=== PATIENT | male | born 1990 | race Caucasian/White ===

== ENCOUNTER → 2016-10-09 | Outpatient (CLI) | payer MEDICAID ==
[~2016-10-09] MED LIST: AMOXICILLIN 50500 MG PO; CEPHALEXIN500 M1 PO; FLEXERIL10 MG PO; LEXAPRO20 MG PO; MOTRIN800 MG PO; NO HOME MEDICATIONS; NORCO 325 MG-51 TAB PO; ULTRAM 50MG TAB50 MG PO; VICODIN 5/5001 UDTAB PO; XANAX0.5 MG PO; ZOFRAN ODT4 MG PO; ZOLOFT 100MG100 MG PO
== END ==
LOC: COL.RAD 11:57
DX: S09.8XXA Other specified injuries of head, initial encounter (principal); W19.XXXA Unspecified fall, initial encounter; Y99.0 Civilian activity done for income or pay; R41.3 Other amnesia; R11.10 Vomiting, unspecified

== ENCOUNTER 2016-10-11 22:24 | Emergency (ER) | payer OTHER, MEDICAID ==
[~2016-10-11] VITALS: Ht 172.7 cm; Wt 65.9 kg
[~2016-10-11 22:24] MED LIST changes: -ULTRAM 50MG TAB50 MG PO; -ZOFRAN ODT4 MG PO; -ZOLOFT 100MG100 MG PO
[2016-10-11 22:28] VITALS: TEMP 97.8
[2016-10-11] MEDS ORDERED: ZOLOFT 100MG100 MG PO (22:28)
[2016-10-12 00:34] VITALS: BP 111/68; PULSE 68
== END 2016-10-12 00:34 | disposition home or self-care (01) ==
LOC: COL.ER 22:24
DX: S06.0X0A Concussion without loss of consciousness, initial encounter (principal); V57.0XXA Driver of pick-up truck or van injured in collision with fixed or stationary object in nontraffic accident, initial encounter

== ENCOUNTER → 2016-10-27 | Outpatient (CLI) | payer OTHER ==
[~2016-10-27] MED LIST changes: +ULTRAM 50MG TAB50 MG PO; +ZOFRAN ODT4 MG PO; +ZOLOFT 100MG100 MG PO
== END ==
LOC: COL.RAD 14:00
DX: S09.8XXD Other specified injuries of head, subsequent encounter (principal); R41.3 Other amnesia; X58.XXXD Exposure to other specified factors, subsequent encounter; Y99.0 Civilian activity done for income or pay

== ENCOUNTER 2016-11-21 09:24 | Emergency (ER) | payer SELFPAY ==
[~2016-11-21] VITALS: Ht 20.3 cm; Wt 68.2 kg
[~2016-11-21 09:24] MED LIST changes: -ULTRAM 50MG TAB50 MG PO; -ZOFRAN ODT4 MG PO
[2016-11-21 09:26] VITALS: BP 103/62; PULSE 84; TEMP 98
[2016-11-21 09:58] LABS: BASO % 0.8 % (0.0-2.0); EOS # 0.1 (0.0-0.7); EOS % 1.9 % (0-4.0); GRAN # 2.8 (1.4-6.5); GRAN % 53.2 % (42.2-75.2); HEMATOCRIT 44.1 % (42.0-52.0); HEMOGLOBIN 15.7 g/dl (13.5-18.0); LYMPH % 37.6 % (20.0-51.0); MEAN CELL VOLUME 88 fl (80.0-100.0); MEAN CORPUSCULAR HEMOGLOBIN 31 pg (27.0-31.0); MEAN CORPUSCULAR HGB CONC 36 g/dl (33.0-37.0); MEAN PLATELET VOLUME 9.4 fl (7.4-10.4); MONO # 0.3 (0.1-0.6); MONO % 6.1 % (1.7-9.3); PLATELET COUNT 223 K/mm3 (130-400); RED BLOOD COUNT 5.04 M/mm3 (4.20-5.60); REDCELL DISTRIBUTION WIDTH-CV 12.6 % (11.5-14.5); WHITE BLOOD COUNT 5.3 K/mm3 (4.8-10.8)
[2016-11-21 10:06] LABS: ALBUMIN 4.3 gm/dL (3.5-5.0); BILIRUBIN,TOTAL 0.7 mg/dL (0.0-1.0); CALCIUM 9.2 mg/dL (8.4-10.2); CREATININE, serum 0.94 mg/dL (0.66-1.25); POTASSIUM 4.2 mmol/L (3.4-5.0); TOTAL PROTEIN 7.6 gm/dL (6.4-8.2)
[2016-11-21 10:19] LABS: INFLUENZA B NEGATIVE
[2016-11-21] MEDS ORDERED: ZOFRAN ODT4 MG PO (11:02)
[2016-11-21 11:03] LABS: PH 5 (5-8); SQUAMOUS EPITHELIAL None Seen /hpf; URINE APPEARANCE Hazy; URINE BACTERIA None Seen /hpf; URINE BILIRUBIN Negative (NEGATIVE); URINE BLOOD Negative (NEGATIVE); URINE COLOR Yellow; URINE GLUCOSE Negative (NEGATIVE); URINE KETONE Negative (NEGATIVE); URINE RBC 0-2 /hpf; URINE WBC 0-2 /hpf
== END 2016-11-21 11:14 | disposition home or self-care (01) ==
LOC: COL.ER 09:24
PROVIDERS: Family Medicine
DX: K52.9 Noninfective gastroenteritis and colitis, unspecified (principal)
CPT/HCPCS: J1885; J2405; J7030

== ENCOUNTER 2016-12-04 10:23 | Emergency (ER) | payer SELFPAY ==
[~2016-12-04] VITALS: Ht 175.3 cm; Wt 68.2 kg
[~2016-12-04 10:23] MED LIST changes: +ZOFRAN ODT4 MG PO
[2016-12-04 10:27] VITALS: BP 113/79; PULSE 76; TEMP 97.7
[2016-12-04] MEDS ORDERED: ULTRAM 50MG TAB50 MG PO (11:04)
[2016-12-04] MEDS ORDERED: AMOXICILLIN 50500 MG PO (11:04)
== END 2016-12-04 11:11 | disposition home or self-care (01) ==
LOC: COL.ER 10:23
DX: K08.89 Other specified disorders of teeth and supporting structures (principal); F17.210 Nicotine dependence, cigarettes, uncomplicated

== ENCOUNTER 2017-03-04 12:22 | Emergency (ER) | payer SELFPAY ==
[~2017-03-04] VITALS: Ht 175.3 cm; Wt 61.4 kg
[~2017-03-04 12:22] MED LIST changes: +ULTRAM 50MG TAB50 MG PO
[2017-03-04 13:42] VITALS: BP 117/74; PULSE 66; TEMP 97.7
== END 2017-03-04 13:43 | disposition home or self-care (01) ==
LOC: COL.ER 12:22
DX: J35.8 Other chronic diseases of tonsils and adenoids (principal); F17.210 Nicotine dependence, cigarettes, uncomplicated

== ENCOUNTER 2017-03-26 13:31 | Emergency (ER) | payer SELFPAY ==
[~2017-03-26] VITALS: Ht 172.7 cm; Wt 70.5 kg
[2017-03-26 13:33] VITALS: TEMP 98.6
[2017-03-26] MEDS ORDERED: NORCO 325 MG-51 TAB PO (15:43)
[2017-03-26 15:58] VITALS: BP 126/70; PULSE 76
== END 2017-03-26 16:00 | disposition home or self-care (01) ==
LOC: COL.ER 13:31
DX: S20.212A Contusion of left front wall of thorax, initial encounter (principal); S80.12XA Contusion of left lower leg, initial encounter; W10.2XXA Fall (on)(from) incline, initial encounter; Y92.89 Other specified places as the place of occurrence of the external cause